=== PATIENT | male | born 1990 | race Caucasian/White ===

== ENCOUNTER 2017-10-19 17:20 | Emergency (ER) | payer BC ==
[~2017-10-19] VITALS: Ht 187.9 cm; Wt 72.6 kg
[~2017-10-19 17:20] MED LIST: AMOXICILLIN500 MG PO; IBU-8800 MG PO; VICODIN ES 7501 TAB PO; ZITHROMAX Z PA250 MG PO
== END 2017-10-19 20:01 | disposition home or self-care (01) ==
LOC: ED 17:32
DX: M79.631 Pain in right forearm (principal)